=== PATIENT | female | born 1960 | race African-American/Black ===

== ENCOUNTER 2016-09-08 20:17 | Emergency (ER) | payer BC ==
[2016-09-08] MEDS ORDERED: NS 0.9% 1000 ML* 1,000 ML BOLUS ONE (21:12)
[2016-09-08] MEDS ORDERED: Ondansetron INJ* 2 MG/ML VIAL IV ONE (21:12)
[2016-09-08] MEDS ORDERED: Ketorolac INJ* 30 MG/ML 1 ML VIAL IV ONE (22:00)
--- NOTE | 2016-09-08 22:36 | RAD ---
Indication: Abdominal pain, abdominal distention. Flat and upright views of the abdomen demonstrates no free air. No dilated loops of bowel are noted. Air-fluid level is noted in the stomach. IMPRESSION: No free air or obstruction is noted.
[2016-09-08] MEDS ORDERED: Ondansetron ODT TAB* 4 MG PO ONE (22:55)
[2016-09-08] MEDS ORDERED: HYDROcodone/ACETAMIN 5-325 MG* 1 TAB PO ONE (22:56)
--- NOTE | 2016-09-08 23:03 | UC ---
Abdominal Pain Female HPI - HPI Summary HPI Summary: 56 yo female with the onset of abd pain last PM Pain primarily RUQ but radiates across abd severe nausea and dry heaves but no vomitng no fever no back pain no UTI symptoms hx utrerine myotomy - History of Current Complaint Chief Complaint: UCAbdominalPain Stated Complaint: ABD PAIN Time Seen by Provider: 09/08/16 21:05 Hx Obtained From: Patient Hx Last Menstrual Period: menopausal Onset/Duration: Gradual Onset, Lasting Hours - 24 Timing: Constant Severity Initially: Severe Severity Currently: Severe Pain Intensity: 8 Pain Scale Used: 0-10 Numeric Location: Discrete At: RUQ Radiates: Yes Radiates to: LLQ, RLQ Character: Colicy, Cramping Aggravating Factor(s): Nothing Alleviating Factor(s): Nothing Associated Signs and Symptoms: Positive: Decreased Appetite, Nausea. Negative: Diaphoresis, Fever, Cough, Chest Pain, Dizzy, Back Pain, Constipation, Blood in Stool, Urinary Symptoms, Vaginal Bleeding, Vaginal Discharge, Vomiting, Diarrhea Allergies/Adverse Reactions: Allergies Allergy/AdvReac Type Severity Reaction Status Date / Time Cephalexin [From Keflex] Allergy Severe Anaphylatic Verified 09/08/16 21:55 Shock Erythromycin Allergy Severe Anaphylatic Verified 09/08/16 21:55 Shock Penicillins Allergy Severe Anaphylatic Verified 09/08/16 21:55 Shock Sulfa Drugs Allergy Severe See Comment Verified 09/08/16 21:55 PMH/Surg Hx/FS Hx/Imm Hx Previously Healthy: Yes - Surgical History Surgical History: Yes Surgery Procedure, Year, and Place: MYOMECTOMY 2002 - Family History Known Family History: Positive: Cardiac Disease, Hypertension, Diabetes - Social History Alcohol Use: Occasionally Substance Use Type: None Smoking Status (MU): Never Smoked Tobacco Review of Systems Constitutional: Negative Skin: Negative Eyes: Negative ENT: Negative Respiratory: Negative Cardiovascular: Negative Gastrointestinal: Abdominal Pain Genitourinary: Negative Motor: Negative Neurovascular: Negative Musculoskeletal: Negative Neurological: Negative Psychological: Negative All Other Systems Reviewed And Are Negative: Yes Physical Exam Triage Information Reviewed: Yes Appearance: Well-Nourished, Pain Distress Vital Signs: Initial Vital Signs Temp 98.8 F 09/08/16 20:29 Pulse 99 09/08/16 20:29 Resp 18 09/08/16 20:29 BP 151/76 09/08/16 20:29 Pulse Ox 99 09/08/16 20:29 Vital Signs Reviewed: Yes Eyes: Positive: Conjunctiva Clear ENT: Positive: Hearing grossly normal, Pharynx normal, Pharyngeal erythema Neck: Positive: Supple Respiratory: Positive: Lungs clear, Normal breath sounds, No respiratory distress Cardiovascular: Positive: RRR, No Murmur Abdomen Description: Positive: No Organomegaly, Soft. Negative: Nontender - tender RUQ (markedly), mild RLQ tendernss, CVA Tenderness (L), Distended, Guarding, Hernia @, Hepatomegaly, McBurney's Point Tenderness, Peritoneal Signs , Pulsatile Mass, Splenomegaly Bowel Sounds: Positive: Present Musculoskeletal: Positive: ROM Intact, No Edema Neurological: Positive: Alert Psychological Exam: Normal Skin Exam: Normal Re-Evaluation - Re-Evaluation First Eval Re-Evaluation Time: 23:10 Change: Improved - pain mild Abd Pain Female Course/Dx - Course Course Of Treatment: after IVF/zofran and toradol pt felt much improved. cutter tender RUQ. she declined going to the ER tonight. she desires to go home. will follow up tomorrow - Differential Dx/Diagnosis Provider Diagnoses: RUQ abd pain of uncertain cause Discharge - Discharge Plan Condition: Improved Disposition: HOME Patient Education Materials: Biliary Colic (ED), Abdominal Pain (ED) Referrals: Bradley Conte MD [Primary Care Provider] - 1 Day Additional Instructions: I am unsure of the cause of your abdominal pain I suspect Gall Bladder disease if symptoms worsen go to the ER -increased pain -vomitng -fever You need to get rechecked tomorrow (AM preferable) Try to avoid eating or drinking anything tonight If you feel better in AM try just clear liquids until you get seen avoid any fatty or fried foods Images Front/Back of Body, Lg ([place]): 1 - tender (++++)
[2016-09-08 23:20] VITALS: BP 136/65
== END 2016-09-08 23:20 | disposition home or self-care (01) ==
LOC: UCEAST 20:17
DX: R10.11 Right upper quadrant pain (principal)
CPT/HCPCS: 74020; 96360; 96361; 96374; 96375; 96376; 99213; A9270-GY; G0463; J1885; J2405

== ENCOUNTER 2017-04-13 11:39 | Day surgery (SDC) | payer BC ==
[~2017-04-13 11:39] MED LIST: Buffered Lidocaine 0.9% SYRIN* 5 ML/SYR SYRINGE INTRADERM ONE
[2017-04-13] MEDS ORDERED: Clindamycin 900 MG IVPREMIX(* 900 MG/50 ML SDV IV ONE (12:35)
[2017-04-13] MEDS ORDERED: fentaNYL* 50 MCG/ML 2 ML VIAL (100 MCG VIAL) ONE (12:41)
[2017-04-13] MEDS ORDERED: Midazolam* 1 MG/ML 2 ML VIAL (2 MG) ONE (12:41)
[2017-04-13] MEDS ORDERED: Bacitracin OINTMENT* 0.5% 0.5 oz TUBE ONE (13:47)
[2017-04-13] MEDS ORDERED: Lidocaine 1% MPF wEPI 200,000* 30 ML SDV ONE (13:48)
[2017-04-13] MEDS ORDERED: Acetaminophen TAB* 325 MG ONE (14:58)
[2017-04-13] MEDS ORDERED: HYDROcodone/ACETAMIN 5-325 MG* 1 TAB ONE (15:18)
[2017-04-13 15:34] VITALS: BP 152/76
--- NOTE | 2017-04-15 04:34 | OP ---
CC: Dr. Brittaney Covarrubias; Dr. Bradley Conte * DATE OF OPERATION: 04/13/17 - [facility] DATE OF : 56 SURGEON: Shlomo Corbett MD CARDIOTHORACIC SURGEON: Cathleen Mcmanus NP ANESTHESIOLOGIST: Antionette Hatch MD ANESTHESIA: Local, MAC. PRE-OP DIAGNOSIS: Mass, forehead. POST-OP DIAGNOSIS: Mass, forehead. OPERATIVE PROCEDURE: Excision of mass, forehead. ESTIMATED BLOOD LOSS: Minimal. SPECIMENS: 1. Excision of mass, forehead. 2. Debridement of frontal bone. DRAINS: None. COMPLICATIONS: None. INDICATIONS FOR OPERATION: The patient is a 56-year-old female who complains of a 6-month history of enlarging lump on her mid forehead area. She states that it is tender, but not painful. She denies any infection, redness or drainage. She denies any history of injury to the area. An ultrasound was performed on 02/28/17, which demonstrated an ovoid fluid collection consistent with a cyst. Preoperative examination of the forehead demonstrates a 3.0 x 2.0 x 0.5 cm smooth, mildly firm slightly mobile mass with the skin freely mobile over it. DESCRIPTION OF PROCEDURE: The patient was brought to the operating room, placed on the table in supine position. The patient was given intravenous sedation by Dr. Hatch. The area was prepped with Betadine solution and draped sterilely. The area was infiltrated with several cc's of 1% lidocaine with epinephrine 1:200,000 solution. Transverse incision was made overlying the mass in the direction of the normal skin creases. Dissection was continued down through the subcutaneous tissue and frontalis muscle. A submuscular encapsulated mass was identified, which was firmly adherent to the periosteum overlying the frontal bone. Periosteum was incised circumferentially around the mass and then the mass carefully elevated with the adherent periosteum off the frontal bone with a freer elevator. Once the actual mass was peeled off the bone, an irregular area of bony erosion was noted with irregular depressed areas and some slightly raised areas of bone, particularly around the edges of the mass. The entire mass was excised and sent in formalin for routine pathologic study. The irregular area of underlying bone and the raised areas of bone were debrided with a fine curved rongeur and the bone fragments sent in formalin for routine pathologic study as well. Hemostasis was obtained with a fine point bipolar electrocautery. Wound was then closed in multiple layers using buried interrupted sutures of 4-0 Vicryl in the muscle layer. Deep dermal sutures of 5-0 Vicryl and then the skin closed with a running subcuticular suture of 4-0 Monocryl. Dermaflex and Steri-Strips were applied and then gauze and tape bandage applied. The patient tolerated the procedure well. There were no complications. All counts were reported as correct at the end of the procedure. The patient was taken to the recovery area in stable postoperative condition. [id number]/[facility] [place] #: [id number] [facility]OSPITALAndrei
== END 2017-04-13 15:54 | disposition home or self-care (01) ==
LOC: OREAST 11:39
PROVIDERS: ATTEND Plastic Surgery
DX: R22.0 Localized swelling, mass and lump, head (principal); I10 Essential (primary) hypertension; J45.909 Unspecified asthma, uncomplicated; Z88.0 Allergy status to penicillin; Z88.1 Allergy status to other antibiotic agents; Z88.2 Allergy status to sulfonamides; Z87.891 Personal history of nicotine dependence
CPT/HCPCS: 81261; 81264; A9270-GY; J2001; J2250; J3010

== ENCOUNTER 2017-05-29 06:09 | Day surgery (SDC) | payer BC ==
[2017-05-29] MEDS ORDERED: Buffered Lidocaine 0.9% SYRIN* 5 ML/SYR SYRINGE ONE (06:47)
[2017-05-29] MEDS ORDERED: Lidocaine 1% INJ* 10 MG/ML 30 ML SDV ONE (07:02)
[2017-05-29] MEDS ORDERED: fentaNYL* 50 MCG/ML 2 ML VIAL (100 MCG VIAL) ONE (07:25)
[2017-05-29] MEDS ORDERED: Midazolam* 1 MG/ML 2 ML VIAL (2 MG) ONE ×2 (07:25→07:58)
[2017-05-29] MEDS ORDERED: Propofol* 10 MG/ML 20 ML BTL IV PUSH ONE (07:58)
[2017-05-29] MEDS ORDERED: Famotidine IV* 10 MG/ML 2 ML (20 mg) ONE (07:58)
[2017-05-29] MEDS ORDERED: Lidocaine 2% PF * 5 ML VIAL ONE (07:58)
[2017-05-29] MEDS ORDERED: Dexamethasone IV* 4 MG/ML 1 ML (4 MG) ONE (07:58)
[2017-05-29] MEDS ORDERED: Ondansetron INJ* 2 MG/ML VIAL ONE (07:58)
[2017-05-29] MEDS ORDERED: diPHENhydraMINE IV* 50 MG/ML 1 ml VIAL (BENADRYL) ONE (08:04)
[2017-05-29] MEDS ORDERED: Naloxone* 0.4 MG/ML 1 ML VIAL IV PRN (08:19)
[2017-05-29] MEDS ORDERED: Acetaminophen TAB* 325 MG PO PRN (08:19)
[2017-05-29] MEDS ORDERED: Levalbuterol 0.63MG/3ML NEB* UNIT OF USE INH PRN (08:19)
[2017-05-29] MEDS ORDERED: PROCHLORPERAZINE INJ 5 MG/ML 2 ML VIAL IV PRN (08:19)
[2017-05-29] MEDS ORDERED: Ondansetron INJ* 2 MG/ML VIAL IV PRN (08:19)
[2017-05-29] MEDS ORDERED: DiMENhydriNATE IV* 50 MG/ML VIAL IV PUSH PRN (08:19)
--- NOTE | 2017-05-29 08:59 | BRIEFOPN ---
Brief Operative Note - Surgery Procedures: Procedures OPERATIVE REPORT PRE-OP: Lymphoma POST-OP: Same PROCEDURE: Insertion of left chest PowerPort, needle in SURGEON: MD Gray ANESTHESIA:Local with LITZY Wade MD ASST: none IVF:min EBL:min SPECIMEN:none DRAIN: none WOUND CLASS: One COMPLICATIONS: none TO PACU
[2017-05-29] MEDS ORDERED: oxyCODONE/Acetamin 5/325 MG* TAB PO PRN (09:05)
[2017-05-29] MEDS ORDERED: Acetaminophen TAB* 325 MG ONE (09:13)
[2017-05-29 09:16] VITALS: BP 134/77
--- NOTE | 2017-05-29 09:28 | RAD ---
INDICATION: Eufzaw-r-Oixu catheter placement COMPARISON: None FINDINGS: None 0.5 seconds of fluoroscopy were provided for the surgical department. Fluoroscopic spot imaging of the chest were obtained for operative control and show left-sided Hcvapv-h-Oolc catheter placement. The course and position of the catheter appears normal. CPT II Codes: 6045F (fluoro time doc)
--- NOTE | 2017-05-29 09:36 | RAD ---
INDICATION: Central venous catheter insertion COMPARISON: None TECHNIQUE: An AP portable view obtained at 0920 hours is submitted. FINDINGS: Bones/Soft Tissues: There are no acute plain radiographic bony findings (refer also to PET scan dated May 12, 2017). There is a left-sided Uffyod-c-Ktel catheter terminating in the superior vena cava Cardiomediastinal: The cardiomediastinal silhouette is normal. Lungs: There are no infiltrates. There is no pneumothorax Pleura: There are no pleural effusions. Other: None IMPRESSION: LEFT-SIDED USOBIH-S-MEWQ CATHETER. NO PNEUMOTHORAX
--- NOTE | 2017-05-30 12:42 | OP ---
CC: LILIANA * DATE OF OPERATION: 05/29/17 - [facility] DATE OF : 56 SURGEON: Reji Castellano MD PLASTIC TILE SETTER: None. ANESTHESIOLOGIST: Dr. Wade. ANESTHESIA: Local with monitored anesthesia care. 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 OPERATIVE PROCEDURE: Insertion of a left chest wall percutaneous 8-[place] PowerPort, needle insert. ESTIMATED BLOOD LOSS: Minimal. COMPLICATIONS: None. WOUND CLASSIFICATION: One. DRAINS: None. SPECIMENS: None. DESCRIPTION OF PROCEDURE: Written informed consent was obtained and the left chest were marked with indelible ink. The patient was taken to the operating room and placed in the supine position. Sequential compression devices and warming blanket were applied. The left and right chest and neck were prepped and draped in the usual sterile fashion. Time-out verification was completed. The patient was placed in Trendelenburg position and 1% lidocaine with epinephrine was infiltrated in the left infra-clavicular area at the left mid clavicular area and using an 18-gauge Cook needle the subclavian vein was punctured on the first pass with good blood return. The guidewire was inserted and confirmed to be in the superior vena cava. Next, additional lidocaine was infiltrated in the anterior chest wall and a transverse incision was made inferior and medial to the puncture site and a subcutaneous pocket was made inferior to this large enough to fit the port itself. The catheter was then tunneled from the port site to the puncture site. Using the sheath peel-away dilator system, the catheter was inserted into the superior vena cava at the junction of the atrium. It corey blood well and flushed without difficulty. It was cut to the appropriate length and attached to the port which was subsequently placed in the pocket. The port was sutured to subcutaneous tissue with 2 separate 3-0 Prolene sutures. Hemostasis was assured. The pocket site and puncture site were then closed with 3- 0 and 4-0 Polysorb suture. Steri-Strips were applied. The port was then accessed with a right angle Delvalle needle, it withdrew blood well and flushed with saline and subsequently flushed with a heparin solution and several Tegaderm occlusive dressings were placed over the Delvalle needle in place leaving the needle in for infusion purposes over the course of today. The patient tolerated the procedure well and was taken to recovery room in stable condition. The postprocedural chest x-ray showed the catheter to be in good position without evidence of pneumothorax. [id number]/[facility] #: [id number] [facility]And[facility]
== END 2017-05-29 09:40 | disposition home or self-care (01) ==
LOC: OR 06:09
PROVIDERS: ATTEND Surgery
DX: C82.60 Cutaneous follicle center lymphoma, unspecified site (principal); Z87.891 Personal history of nicotine dependence; I10 Essential (primary) hypertension; J45.909 Unspecified asthma, uncomplicated; Z68.39 Body mass index [BMI] 39.0-39.9, adult
CPT/HCPCS: 71045; 76001; A9270-GY; C1788; J1100; J1200; J1642; J2250; J2405; J2704; J3010

== ENCOUNTER 2018-11-12 20:16 | Emergency (ER) | payer BC ==
[2018-11-12 20:41] VITALS: BP 148/77
[2018-11-12] MEDS ORDERED: Fluorescein Sodium TOPICAL* 1 MG TEST STRIP OPHTHALMIC ONE (21:13)
[2018-11-12] MEDS ORDERED: Tetracaine 0.5% OPTH.SOL 4 ML* 1 DROP BTL RIGHT EYE ONE (21:13)
[2018-11-12] MEDS ORDERED: Ciprofloxacin 0.3% OPTH.SOL* BTL RIGHT EYE ONE (22:04)
--- NOTE | 2018-11-12 22:12 | UC ---
Eye Complaint HPI - HPI Summary HPI Summary: 58 year old female presents with complaints of right eye pain and possible retained contact. States her eye became itchy and irritated around 5:00 pm this afternoon. Tried to take her contact out but was not successful. Later in the evening the eye became more irritated and painful so she attempted to remove the contact again. She states she never found the contact so she came to urgent care. Has FB sensation. Denies any visual disturbances or photophobia. - History of Current Complaint Chief Complaint: UCEye Stated Complaint: CONTACT STUCK IN EYE Time Seen by Provider: 11/12/18 21:12 Hx Obtained From: Patient Hx Last Menstrual Period: menopausal Pain Intensity: 8 - Allergies/Home Medications Allergies/Adverse Reactions: Allergies Allergy/AdvReac Type Severity Reaction Status Date / Time cephalexin Allergy Severe Anaphylatic Verified 11/12/18 20:42 Shock clarithromycin [From Biaxin] Allergy Severe Anaphylatic Verified 11/12/18 20:42 Shock erythromycin base Allergy Severe Anaphylatic Verified 11/12/18 20:42 Shock Penicillins Allergy Severe Anaphylatic Verified 11/12/18 20:42 Shock Sulfa (Sulfonamide Allergy Severe See Comment Verified 11/12/18 20:42 Antibiotics) PMH/Surg Hx/FS Hx/Imm Hx Cardiovascular History: Hypertension Cancer History: Breast Cancer - Surgical History Surgical History: Yes Surgery Procedure, Year, and Place: MYOMECTOMY [id number] BREAST BIOPSY-[facility] [place] - Family History Known Family History: Positive: Cardiac Disease, Hypertension, Diabetes - Social History Occupation: Employed Full-time Lives: Alone Alcohol Use: Weekly Substance Use Type: None Smoking Status (MU): Never Smoked Tobacco Amount Used/How Often: NOT MORE THAN 10 PACKS IN 9 YEARS Have You Smoked in the Last Year: No When Did the Patient Quit Smoking/Using Tobacco: 1988 Review of Systems All Other Systems Reviewed And Are Negative: Yes Constitutional: Negative: Fever, Chills Eyes: Positive: Drainage, Eye Redness. Negative: Blurred Vision, Diplopia, Photophobia ENT: Positive: Negative Respiratory: Positive: Negative Cardiovascular: Positive: Negative Gastrointestinal: Positive: Negative Genitourinary: Positive: Negative Musculoskeletal: Positive: Negative Neurological: Positive: Negative Is Patient Immunocompromised?: No Physical Exam - Summary Physical Exam Summary: GENERAL APPEARANCE: Alert and cooperative adult female who appears to be uncomfortable and keeping her right eye closed. EYES: Left eye normal. Right conjunctival erythema and edema with thick purulent drainage noted. Tetracaine was instilled into the eye. No gross foreign body noted on exam. Fluorosceine was then instilled and the eye examined under magnification with a Wood's lamp. There was no FB, stain uptake, corneal abrasion or ulceration noted. The upper and lower lids were everted as part of the exam. CARDIAC: Normal S1 and S2. No S3, S4 or murmurs. Rhythm is regular. There is no peripheral edema, cyanosis or pallor. Extremities are warm and well perfused. Capillary refill is less than 2 seconds. Peripheral pulses intact. LUNGS: Clear to auscultation without rales, rhonchi, wheezing or diminished breath sounds. ABDOMEN: Positive bowel sounds. Soft, nondistended, nontender. No guarding or rebound. No masses or hepatosplenomegally. MUSKULOSKELETAL: ROM intact to all extremities. No joint erythema or tenderness. Normal muscular development. Normal gait. SKIN: Skin normal color, texture and turgor with no lesions or eruptions. Triage Information Reviewed: Yes Vital Signs: Initial Vital Signs Temp 98.2 F 11/12/18 20:37 Pulse 92 11/12/18 20:37 Resp 16 11/12/18 20:37 BP 148/77 11/12/18 20:37 Pulse Ox 99 11/12/18 20:37 Vital Signs Reviewed: Yes Eye Complaint Course/Dx - Course Course Of Treatment: 58 year old female presents with complaints of right eye pain and possible retained contact. States her eye became itchy and irritated around 5:00 pm this afternoon. Tried to take her contact out but was not successful. Later in the evening the eye became more irritated and painful so she attempted to remove the contact again. She states she never found the contact so she came to urgent care. Has FB sensation. Denies any visual disturbances or photophobia. Afebrile. Hypertensive otherwise VSS. Patient had right conjunctival erythema and edema with thick purulent drainage noted. Tetracaine was instilled into the eye. No gross foreign body noted on exam. Fluorosceine was then instilled and the eye examined under magnification with a Wood's lamp. There was no FB, stain uptake, corneal abrasion or ulceration noted. The upper and lower lids were everted as part of the exam. The remainder of the exam was unremarkable. Discussed the case with Dr. García who co-examined the patient and agreed with my findings. Since no FB, abrasion, or ulceration was found, I will treat the patient for a right eye conjunctivitis with ciprofloxacin ophthalmic to cover for possible pseudomonas as she is a contact lens wearer. She is to follow up with ophthalmology in 1 day if symptoms are not improving. Anticipatory guidance and warning symptoms were reviewed with the patient. Verbalizes understanding and agrees with POC. - Differential Dx/Diagnosis Differential Diagnosis/HQI/PQRI: Conjunctivitis, Corneal Abrasion, Foreign Body , Keratitis, Uveitis Provider Diagnosis: Conjunctivitis, right eye Discharge - Sign-Out/Discharge Documenting (check all that apply): Patient Departure All imaging exams completed and their final reports reviewed: No Studies - Discharge Plan Condition: Stable Disposition: HOME Patient Education Materials: Conjunctivitis (ED) Referrals: Bradley Conte MD [Primary Care Provider] - Bradley Marcos MD [Medical Doctor] - 1 Day (If no improvement. Call for appointment.) Additional Instructions: There was no evidence of a retained contact in URI on examination. I also did not see any evidence of a corneal abrasion or ulceration. You did have a lot of redness, inflammation of the conjunctiva, and drainage from the eye therefore going to place you on an antibiotic to treat for a possible infection. Instill ciprofloxacin ophthalmic drops 1 drop into the right eye every 2 hours while awake for the first 2 days then 1 drop into the right eye every 4 hours while awake for the next 5 days. Do not wear your contacts until you have completed the treatment. Throw out the old pair and use a new pair once you have completed you treatment. Follow up with ophthalmology in 1 day if no improvement. Call for appointment. Seek immediate medical attention in the emergency room if you develop fever greater than 100.5 F, have pain or swelling of the eye, visual disturbances, loss of vision, or any worsening of symptoms. - Billing Disposition and Condition Condition: STABLE Disposition: Home
== END 2018-11-12 22:22 | disposition home or self-care (01) ==
LOC: UCEAST 20:16
DX: H10.9 Unspecified conjunctivitis (principal); Z87.891 Personal history of nicotine dependence; Z88.0 Allergy status to penicillin; Z88.2 Allergy status to sulfonamides; Z88.1 Allergy status to other antibiotic agents
CPT/HCPCS: 99212; A9270-GY; G0463